=== PATIENT | male | born 1970 | race Two or more races ===

== ENCOUNTER 2019-10-13 20:44 | Emergency (ER) | payer MEDICAID ==
[~2019-10-13] VITALS: Ht 167.6 cm; Wt 68.0 kg
[2019-10-13 20:45] VITALS: BP 129/82
--- NOTE | 2019-10-13 20:45 | NUR ---
ED Nurse Note: Pt brought into ED by LAY[facility]26 for c/o coughing up blood. Pt admits to drinking at least six beers tonight and has hx of chronic alcohol use. Pt is awake and alert, speaking in full sentences and does smell of alcohol. Pt is actively spitting up blood, source unknown and ERMD aware. Pt denies any trauma to the face. Pt connected to senior treasury consultant. Will continue to closely monitor.
[2019-10-13] MEDS ORDERED: Bacitracin Oint UD TOPIC ONE (21:00)
[2019-10-13 21:07] LABS: BASOPHILS % (AUTO) 2.1 % (0.0-2.0); EOSINOPHILS % (AUTO) 2.3 % (0.0-3.0); HEMATOCRIT 38.9 % (42.0-52.0); HEMOGLOBIN 12.5 G/DL (14.2-18.0); LYMPHOCYTES % (AUTO) 33.6 % (20.0-45.0); MEAN CORPUSCULAR VOLUME 91 FL (80-99); MONOCYTES % (AUTO) 9.7 % (1.0-10.0); NEUTROPHILS % (AUTO) 52.4 % (45.0-75.0); PLATELET COUNT 129 K/UL (150-450); RED BLOOD COUNT 4.25 M/UL (4.70-6.10); RED CELL DISTRIBUTION WIDTH 14.8 % (11.6-14.8); WHITE BLOOD COUNT 6.1 K/UL (4.8-10.8)
[2019-10-13 21:14] LABS: ANION GAP 10 mmol/L (5-15); BLOOD UREA NITROGEN 6 mg/dL (7-18); CALCIUM 8.4 MG/DL (8.5-10.1); CARBON DIOXIDE 31 MMOL/L (21-32); CHLORIDE 90 MMOL/L (98-107); CREATININE 0.8 MG/DL (0.55-1.30); POTASSIUM 3.3 MMOL/L (3.5-5.1); SODIUM 131 MMOL/L (136-145)
[2019-10-13 21:15] LABS: INR 1.1 (0.9-1.1)
[2019-10-13 21:19] LABS: ALANINE AMINOTRANSFERASE 95 U/L (12-78); ALBUMIN 3.8 G/DL (3.4-5.0); ALBUMIN/GLOBULIN RATIO 0.7 (1.0-2.7); ALKALINE PHOSPHATASE 226 U/L (46-116); ASPARTATE AMINO TRANSFERASE 220 U/L (15-37); BILIRUBIN,TOTAL 0.9 MG/DL (0.2-1.0)
--- NOTE | 2019-10-13 21:30 | NUR ---
ED Nurse Note: Unable to obtain EKG, HECTOR aware.
--- NOTE | 2019-10-13 21:44 | Diagnostic Imaging Report ---
EXAM: XR Chest, 1 View CLINICAL HISTORY: ABD PAIN TECHNIQUE: Frontal view of the chest. COMPARISON: No relevant prior studies available. FINDINGS: Lungs: Unremarkable. No consolidation. Pleural space: Unremarkable. No pneumothorax. Heart: Unremarkable. No cardiomegaly. Mediastinum: Unremarkable. Bones/joints: Unremarkable. IMPRESSION: 1. No acute cardiopulmonary disease. 2. If there is continued concern recommend frontal and lateral chest radiographs or CT.
[2019-10-13 22:30] VITALS: BP 115/80
--- NOTE | 2019-10-13 22:30 | NUR ---
ED Nurse Note: Pt is sleeping at this time, NAD, VSS.
--- NOTE | 2019-10-13 23:25 | Emergency Room Report ---
History of Present Illness General Chief Complaint: Gastrointestinal Bleed Source: Patient Present Illness HPI EMS brought patient for spitting/coughing up blood. Patient states the blood is coming from a cut on his hand. The patient denies all symptoms except saying that he feels somewhat weak. He states he needs IV to IV fluids. He denies coughing at this time. He also denies nausea, vomiting and melena. He states his stools have been ritter or brown in color. He denies night sweats The patient drinks beer daily. He denies working hard liquor. He denies seizures, ulcers. He also denies recent head trauma. No sore throat, mouth pain, chest pain, palpitations, dysuria, abdominal pain, shortness of breath, joint pain, rashes, depression, anxiety, visual changes, dizziness, headache. 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 Patient History Past Medical History: see triage record Social History: Reports: smoking, alcohol use; Denies: drug use Social History Narrative The patient lives on the streets and was born in [facility] Reviewed Nursing Documentation: PMH: Agreed; PSxH: Agreed Nursing Documentation-PM Past Medical History: No Stated History Review of Systems All Other Systems: negative except mentioned in HPI Physical Exam Vital Signs Date Time Temp Pulse Resp B/P (MAP) Pulse Ox O2 Delivery O2 Flow Rate FiO2 10/13/19 20:40 99.1 80 16 154/88 (110) 99 Room Air Sp02 EP Interpretation: reviewed, normal General Appearance: no apparent distress, alert, non-toxic, other - Disheveled and slightly tremulous Head: normocephalic Eyes: bilateral eye PERRL, bilateral eye EOMI, bilateral eye Scleral Injection ENT: normal pharynx, moist mucus membranes - No oral lesions Neck: full range of motion, supple Respiratory: lungs clear, normal breath sounds Cardiovascular #1: regular rate, rhythm Cardiovascular #2: 2+ radial (R) Gastrointestinal: normal inspection, normal bowel sounds, non tender, non- distended Genitourinary: no CVA tenderness Musculoskeletal: back normal, normal range of motion, gait/station normal - With some unsteadiness Neurologic: alert, motor strength/tone normal, oriented - X2, sensory intact, speech normal - Except slurred, other - Slightly ataxic Psychiatric: mood/affect normal - With denial Skin: no rash, warm/dry, other - Plethoric Medical Decision Making Homeless Attestation I, The treating physician Dr. Renteria, have assessed and agree that patient is medically stable for discharge to an outpatient disposition. Diagnostic Impression: Primary Impression: Oral bleeding Additional Impressions: Acute alcohol intoxication Qualified Codes: F10.929 - Alcohol use, unspecified with intoxication, unspecified Elevated liver enzymes ER Course Patient presents with either coughing or spitting up blood denying that there is a problem. Differential includes oral lesion, hemoptysis, coagulopathy, esophageal varices amongst others. Evaluation with EKG, chest x-ray and labs. Patient treated with IV hydration and Pepcid. EKG without injury. Chest x-ray clear. CBC normal except for slight anemia. Platelets minimally low. CMP with elevated liver function tests, slightly low sodium of potassium. Blood alcohol elevated. Rns noted some bleeding from mouth. Unable to ID where. No more bleeding from mouth after observation. Patient improved after receiving IV hydration and resting without signs of withdrawal. Signed out to Dr. Noriega. Laboratory Tests Test 10/13/19 08:50 White Blood Count 6.1 K/UL (4.8-10.8) Red Blood Count 4.25 M/UL (4.70-6.10) L Hemoglobin 12.5 G/DL (14.2-18.0) L Hematocrit 38.9 % (42.0-52.0) L Mean Corpuscular Volume 91 FL (80-99) Mean Corpuscular Hemoglobin 29.4 PG (27.0-31.0) Mean Corpuscular Hemoglobin Concent 32.2 G/DL (32.0-36.0) Red Cell Distribution Width 14.8 % (11.6-14.8) Platelet Count 129 K/UL (150-450) L Mean Platelet Volume 7.3 FL (6.5-10.1) Neutrophils (%) (Auto) 52.4 % (45.0-75.0) Lymphocytes (%) (Auto) 33.6 % (20.0-45.0) Monocytes (%) (Auto) 9.7 % (1.0-10.0) Eosinophils (%) (Auto) 2.3 % (0.0-3.0) Basophils (%) (Auto) 2.1 % (0.0-2.0) H Prothrombin Time 11.8 SEC (9.30-11.50) H Prothrombin Time INR 1.1 (0.9-1.1) Activated Partial Thromboplast Time 28 SEC (23-33) Sodium Level 131 MMOL/L (136-145) L Potassium Level 3.3 MMOL/L (3.5-5.1) L Chloride Level 90 MMOL/L (98-107) L Carbon Dioxide Level 31 MMOL/L (21-32) Anion Gap 10 mmol/L (5-15) Blood Urea Nitrogen 6 mg/dL (7-18) L Creatinine 0.8 MG/DL (0.55-1.30) Estimated Glomerular Filtration Rate > 60 mL/min (>60) Glucose Level 150 MG/DL (74-106) H Calcium Level 8.4 MG/DL (8.5-10.1) L Magnesium Level 1.9 MG/DL (1.8-2.4) Total Bilirubin 0.9 MG/DL (0.2-1.0) Aspartate Amino Transferase (AST) 220 U/L (15-37) H Alanine Aminotransferase (ALT) 95 U/L (12-78) H Alkaline Phosphatase 226 U/L (46-116) H Troponin I 0.000 ng/mL (0.000-0.056) Total Protein 8.9 G/DL (6.4-8.2) H Albumin 3.8 G/DL (3.4-5.0) Globulin 5.1 g/dL Albumin/Globulin Ratio 0.7 (1.0-2.7) L Lipase 293 U/L (73-393) Serum Alcohol 351 mg/dL EKG Diagnostic Results Rate: normal Rhythm: NSR ST Segments: no acute changes Rhythm Strip Diag. Results EP Interpretation: yes Rhythm: NSR, no PVC's, no ectopy Chest X-Ray Diagnostic Results Chest X-Ray Diagnostic Results : Chest X-Ray Ordered: Yes # of Views/Limited/Complete: 1 View Indication: Other EP Interpretation: Yes Interpretation: no consolidation, no effusion, no pneumothorax Impression: No acute disease Electronically Signed by: Electronically signed by Grzegorz Renteria MD Last Vital Signs Date Time Temp Pulse Resp B/P (MAP) Pulse Ox O2 Delivery O2 Flow Rate FiO2 10/14/19 00:10 98.9 99 16 112/95 98 Room Air Status: improved Disposition: HOME, SELF-CARE Condition: Improved Referrals: NOT CHOSEN IPA/,REFERRING (PCP) Grzegorz Renteria MD Oct 13, 2019 23:25
--- NOTE | 2019-10-14 | NUR ---
ED Nurse Note: Pt woke up and is asking to leave. Pt is ambulatory. ERMD ok with DC.
[2019-10-14 00:10] VITALS: BP 112/95
--- NOTE | 2019-10-14 00:10 | NUR ---
ER DISCHARGE NOTE: Patient is cleared to be discharged per ERMD, pt is aox4, on room air, with stable vital signs. pt was given dc instructions, pt was able to verbalize understanding, pt id band and iv site removed without complications. pt is able to ambulate with steady gait. pt took all belongings.
== END 2019-10-14 00:10 | disposition home or self-care (01) ==
LOC: EDBD 20:44 → EMR 21:10
DX: K13.79 Other lesions of oral mucosa (principal); F10.129 Alcohol abuse with intoxication, unspecified; R94.5 Abnormal results of liver function studies; F17.200 Nicotine dependence, unspecified, uncomplicated; D64.9 Anemia, unspecified
CPT/HCPCS: 36415; 71045; 80053; 83690; 83735; 84484; 85025; 85610; 85730; 96361; 96374; 96375; G0480; J2405; J7030; S0028; Z7502; 99284